=== PATIENT | female | born 1935 | race Caucasian/White ===

== ENCOUNTER → 2017-04-21 | Outpatient (CLI) | payer MEDICARE ==
--- NOTE | 2017-04-21 16:00 | WOMENS IMAGING REPORT ---
EXAM DESCRIPTION: BONE DENSITY HIP/SPINE COMPLETED DATE/TIME: 04/21/2017 1:11 pm REASON FOR STUDY: SCREENING OSTEOPROSIS; Z13.820 Z13.820 ENCOUNTER FOR SCREENING FOR OSTEOPOROSIS COMPARISON: 2002, 2004, 2010 TECHNIQUE: Dual-Energy X-ray Absorptiometry (DEXA) of the AP Spine and Hip. LIMITATIONS: None. FINDINGS: LUMBAR SPINE: The bone mineral density (BMD) measured from L1-L4 in the AP projection correlates with a T-score of -1.9, which is osteopenic as defined by the World Health Organization. This is not statistically sig nificantly different from 2010 HIP: The bone mineral density (BMD) measured in the left femoral neck at the hip correlates with a T-score of -2.2, which is osteopenic as defined by the World Health Organization. This represents a 7% incr ease in bone density compared to 2010 IMPRESSION: 1. LUMBAR SPINE: Osteopenic 2. HIP: Osteopenic COMMENT: The World Health Organization defines low BMD as follows: T-score: Normal: Greater than -1.0 Osteopenia: Between -1.0 and -2.5 Osteoporosis: Less than -2.5 without fractures Established osteoporosis: Less than -2.5 with fractures In general, you may wish to consider: Diagnosis Treatment Follow-up DEXA Normal BMD Prevention 2-3 years Osteopenia Prevention/Therapy 1-2 years Osteoporosis Therapy Yearly TECHNICAL DOCUMENTATION: JOB ID: [id number] [employer]- All Rights Reserved
== END ==
LOC: WI 09:21
PROVIDERS: ATTEND Registered Nurse
DX: M81.0 Age-related osteoporosis without current pathological fracture (principal)
CPT/HCPCS: 77080

== ENCOUNTER → 2018-02-02 | Outpatient (CLI) | payer MEDICARE ==
--- NOTE | 2018-02-03 08:39 | RADIOLOGY REPORT (SQ) ---
EXAM DESCRIPTION: MRIRLJ WO COMPLETED DATE/TIME: 02/02/2018 5:01 pm REASON FOR STUDY: S72.051S UNSPECIFIED FRACTURE OF HEAD OF RIGHT FEMUR, SEQUELA COMPARISON: None. TECHNIQUE: Noncontrast multiplanar MR imaging. Sequences include wide field of view pelvis and focu sed hip of interest. Fat sensitive, water sensitive, and cartilage sensitive sequences. Specific hip of interest: Right LIMITATIONS: None. FINDINGS: MARROW SIGNAL: Normal, no evidence of replacement, occult fracture or suspicious bone lesi on in the visualized lumbar spine, pelvis and proximal femurs. SPECIFIC HIP OF INTEREST: No effusion. Superomedial hip joint space narrowing with chondral thinnin g and subchondral edema. Small femoral osteophytes. No evidence of AVN, fracture or bone lesion. G enerally irregular frayed torn appearance of the labrum. No paralabral cyst formation. No regional significant bursitis. OPPOSITE HIP: No effusion. No AVN or bone lesion. Suspect mild narrowing and small osteophytes, deg enerative change. Not evaluated in a high-resolution fashion. REMAINDER OF THE OSSEOUS PELVIS: SI joints normal. Symphasis pubis intact. No Avulsion injury evide nt. INTRA- AND EXTRAPELVIC SOFT TISSUES: Mild fibroid uterus. Normal bladder. IMPRESSION: 1. Right hip DJD with associated findings as above. No evidence of fracture or worriso me bone lesion. Reading location - IP/workstation name: ANNA MARIE
== END ==
LOC: RAD 15:57
PROVIDERS: ATTEND Family Medicine
DX: S72.051S Unspecified fracture of head of right femur, sequela (principal); X58.XXXS Exposure to other specified factors, sequela

== ENCOUNTER → 2018-07-06 | Day surgery (SDC) | payer MEDICARE ==
[~2018-07-06] MED LIST: BUPIVACAINE HCL 0.5 % INJ/PF 30 ML SDV ONE; METHYLPREDNISOLONE ACETATE INJ 40 MG/1 ML ML ONE
--- NOTE | 2018-07-06 14:57 | RADIOLOGY REPORT (SQ) ---
EXAM DESCRIPTION: FLUORO/NEEDLE PLACEMENT; INJECT/ASPIR HIP/SHLDR/KNEE COMPLETED DATE/TIME: 07/06/2018 1:37 pm REASON FOR STUDY: OA OF HIP (M16.0) M16.0 BILATERAL PRIMARY OSTEOARTHRITIS OF HIP COMPARISON: None. FLUOROSCOPY TIME: 8 seconds 1 digital radiographic image saved to PACS. LIMITATIONS: None. PROCEDURE: SITE OF INJECTION: Left hip LOCALIZING CONTRAST TYPE AND DOSE: 1 mL of Omnipaque 300 MEDICATION TYPE AND DOSE: 80 mg of Depo-Medrol, 3 mL of 0.5% bupivacaine Using local anesthesia and sterile technique with fluoroscopic guidance, the needle was advanced into the joint. Iodinated contrast was injected to verify intraarticular placement. This was followed by therapeutic injection of the indicated medications. The needle was removed. There were no immediat e complications. Preprocedure pain level: 8/10. Postprocedure pain level: 4/10. After written consent and assessment were obtained, the patient was brought into the fluoroscopy room and placed prone on the table. The patient's lower left hip was prepped in a sterile fashion and an entry site was selected under live fluoroscopic guidance. The entry site was anesthetized with 5 mL of 1% lidocaine. A 22 gauge needle was advanced through the skin and into the left hip. Intra-articu lar needle placement was confirmed by injection of 1 mL of Omnipaque 300. At this point, 80 mg of De po-Medrol and 3 mL of 0.5% bupivacaine was injected into the left hip joint space. Needle was remove d. A Band-Aid applied. No immediate complications. IMPRESSION: THERAPEUTIC INJECTION OF THE LEFT HIP JOINT ABOVE. COMMENT: Patient medication list reviewed: Yes- Quality ID# [id number]:Eligible professional attests to doc umenting in the medical record they obtained, updated, or reviewed the patient's current medications. . Quality ID 145: Final reports for procedures using fluoroscopy that document radiation exposure sahra carmen, or exposure time and number of fluorographic images (if radiation exposure indices are not avail able) TECHNICAL DOCUMENTATION: JOB ID: [id number] [employer] All Rights Reserved Reading location - IP/workstation name: [facility]
--- NOTE | 2018-07-06 14:57 | RADIOLOGY REPORT (SQ) ---
EXAM DESCRIPTION: FLUORO/NEEDLE PLACEMENT; INJECT/ASPIR HIP/SHLDR/KNEE COMPLETED DATE/TIME: 07/06/2018 1:37 pm REASON FOR STUDY: OA OF HIP (M16.0) M16.0 BILATERAL PRIMARY OSTEOARTHRITIS OF HIP COMPARISON: None. FLUOROSCOPY TIME: 8 seconds 1 digital radiographic image saved to PACS. LIMITATIONS: None. PROCEDURE: SITE OF INJECTION: Left hip LOCALIZING CONTRAST TYPE AND DOSE: 1 mL of Omnipaque 300 MEDICATION TYPE AND DOSE: 80 mg of Depo-Medrol, 3 mL of 0.5% bupivacaine Using local anesthesia and sterile technique with fluoroscopic guidance, the needle was advanced into the joint. Iodinated contrast was injected to verify intraarticular placement. This was followed by therapeutic injection of the indicated medications. The needle was removed. There were no immediat e complications. Preprocedure pain level: 8/10. Postprocedure pain level: 4/10. After written consent and assessment were obtained, the patient was brought into the fluoroscopy room and placed prone on the table. The patient's lower left hip was prepped in a sterile fashion and an entry site was selected under live fluoroscopic guidance. The entry site was anesthetized with 5 mL of 1% lidocaine. A 22 gauge needle was advanced through the skin and into the left hip. Intra-articu lar needle placement was confirmed by injection of 1 mL of Omnipaque 300. At this point, 80 mg of De po-Medrol and 3 mL of 0.5% bupivacaine was injected into the left hip joint space. Needle was remove d. A Band-Aid applied. No immediate complications. IMPRESSION: THERAPEUTIC INJECTION OF THE LEFT HIP JOINT ABOVE. COMMENT: Patient medication list reviewed: Yes- Quality ID# [id number]:Eligible professional attests to doc umenting in the medical record they obtained, updated, or reviewed the patient's current medications. . Quality ID 145: Final reports for procedures using fluoroscopy that document radiation exposure sahra carmen, or exposure time and number of fluorographic images (if radiation exposure indices are not avail able) TECHNICAL DOCUMENTATION: JOB ID: [id number] [employer]- All Rights Reserved Reading location - IP/workstation name: [facility]
== END ==
LOC: RAD 12:29
PROVIDERS: ATTEND Family Medicine
DX: M16.0 Bilateral primary osteoarthritis of hip (principal)
CPT/HCPCS: 20610; 77002; J3490; J1020

== ENCOUNTER 2018-07-19 04:58 | Emergency (ER) | payer MEDICARE ==
[2018-07-19] MEDS ORDERED: FENTANYL CITRATE INJ/PF 100 MCG/2 ML AMPUL IV ONE (05:25)
--- NOTE | 2018-07-19 06:28 | RADIOLOGY REPORT (SQ) ---
Right forearm two view on 07/19/2018 at 6:12 AM CLINICAL INDICATION: Right forearm pain after fall COMPARISON: None FINDINGS: There is mild diffuse osteopenia. Soft tissue swelling is noted in the forearm. Small olecranon spur is noted. There are no acute fractures. Visualized joints are well aligned. IMPRESSION: No acute abnormality in the forearm.
--- NOTE | 2018-07-19 06:30 | RADIOLOGY REPORT (SQ) ---
EXAM DESCRIPTION: XR HUMERUS COMPLETED DATE/TME: 07/19/2018 05:10 CLINICAL HISTORY: 83 years, Female, pain/fall COMPARISON: None. NUMBER OF VIEWS: Two view LIMITATIONS: None. FINDINGS: Oblique fracture of the mid diaphysis of the right humerus, shafts width medial displacement. Swelling. Metallic anchor fixation of the right humeral head. Widened acromioclavicular joint due to distal clavicular resection and/or ligamentous injury. IMPRESSION: Fracture of the right humeral shaft.
--- NOTE | 2018-07-19 06:31 | RADIOLOGY REPORT (SQ) ---
EXAM DESCRIPTION: XR HAND 3 OR MORE VIEWS COMPLETED DATE/TME: 07/19/2018 05:35 CLINICAL HISTORY: 83 years, Female, fall COMPARISON: None. NUMBER OF VIEWS: Three TECHNIQUE: Three views of the right hand LIMITATIONS: None. FINDINGS: There is a band of sclerosis within the capitate and hamate concerning for a nondisplaced fracture. No displaced fracture is identified. The bones are demineralized. There is marked soft tissue swelling along the dorsum of the hand. IMPRESSION: Band of sclerosis within the capitate and hamate, concerning for a nondisplaced fracture. No displaced fracture is identified. 2011 [employer]- All Rights Reserved
--- NOTE | 2018-07-19 06:42 | ER Document Report ---
ED Fall - General Chief Complaint: Fall Stated Complaint: ARM INJURY Time Seen by Provider: 07/19/18 06:07 Notes: 83-year-old female presents to the emergency department after a fall. The patient was recently vacationing in [place] when she fell down and fractured her midshaft humerus. She has come back to her orthopedist in [place] and they are going to set her up for surgery in the coming week. The patient tripped and fell last night. She stated she just lost her balance there is no loss of consciousness or after the fall. Complains of sharp pain in the right arm patient denies any headache or blurred vision no neck pain no extremity numbness tingling weakness no chest pain or shortness of breath. Patient also complains of a abrasion on the knee. TRAVEL OUTSIDE OF THE [place] IN LAST 30 DAYS: No - Related data Allergies/Adverse Reactions: codeine [Codeine] Allergy (Mild, Verified 12/31/14 11:31) Nausea steroids Allergy (Uncoded 12/31/14 11:31) Past Medical History - Social History Smoking Status: Unknown if Ever Smoked Family History: Reviewed & Not Pertinent Patient has suicidal ideation: No Patient has homicidal ideation: No - Past Medical History Cardiac Medical History: Reports: Hx Atrial Fibrillation - afib, Hx Hypertension - FOR THE LAST FEW MONTHS Denies: Hx Coronary Artery Disease, Hx Heart Attack Pulmonary Medical History: Reports: Hx COPD, Hx Pneumonia - As a child Denies: Hx Asthma, Hx Bronchitis Neurological Medical History: Denies: Hx Cerebrovascular Accident, Hx Seizures Renal/ Medical History: Denies: Hx Peritoneal Dialysis GI Medical History: Reports: Hx Gastroesophageal Reflux Disease Musculoskeletal Medical History: Reports Hx Arthritis - Fingers Past Surgical History: Reports: Hx Appendectomy. Denies: Hx Hysterectomy - Immunizations Hx Diphtheria, Pertussis, Tetanus Vaccination: No Hx Pneumococcal Vaccination: 01/06/14 Review of Systems - Review of Systems Constitutional: denies: Chills, Fever Cardiovascular: denies: Chest pain, Dyspnea Gastrointestinal: denies: Abdominal pain Musculoskeletal: Joint pain Skin: denies: Other -: Yes All other systems reviewed and negative Physical Exam - Notes Notes: GENERAL_APPEARANCE: well_nourished, alert, cooperative, appears uncomfortable VITALS: reviewed, see vital signs table. HEAD: no_swelling\tenderness on the head. EYES: PERRL, EOMI, conjunctiva_clear. NOSE: no_nasal_discharge. MOUTH: (-)decreased moisture. NECK: supple, no_neck_tenderness, (-)thyromegaly. BACK: no_back_tenderness. CHEST_WALL: no_chest_tenderness. EXTREMITIES: Patient has a coaptation splint on her right arm. Her entire right arm is bruised and ecchymotic these bruises are old. There is strong radial and ulnar pulses distal. There is brisk cap refill to nailbeds. There is swelling noted at the midshaft humerus. No open wounds. There is a note her right leg is also swollen there is a small abrasion on the knee again also looks old but may have been re-open due to this fall there is bruising of the leg. SKIN: warm, dry, good_color, no_rash. MENTAL_STATUS: speech_clear, oriented_X_3, normal_affect, responds_ appropriately to questions. NEURO: Neg Motor or Sensory Deficits on exam, CN 2-12 intact, DTR 2+ symmetric x 4, No cerbellar signs Course - Re-evaluation Re-evalutation: 07/19/18 06:41 Elderly female presents after a fall the patient has a history of falls. There is no loss of consciousness. This was a mechanical fall on the way to the bathroom. Patient has a pre-existing midshaft humerus fracture. There is seeing the orthopedist in [place] and is setting up for surgery. Patient is already splinted family wanted to come in and just reevaluate to be sure more no additional damage was done we are x-raying the arm hand and extremities. Patient is neurologically intact there is head and neck CTs are required at this time 07/19/18 06:43 There is some swelling noted to the wrist. There is some mild tenderness there but she has had this. There may be occult fracture noted by the radiologist but no nondisplaced fracture is noted. 07/19/18 07:29 [address] a Velcro wrist splint on that right wrist. Patient has a follow-up this week with orthopedist. Gave her a copy of the wrist report. Family requests some additional pain medicine will prescribe some oxycodone for her. She is a low risk for diversion or abuse. - Diagnostic Test Radiology reviewed: Image reviewed, Reports reviewed Radiology results interpreted by me: 07/19/18 06:42 Humerus X-Ray 07/19/18 05:10 IMPRESSION: Fracture of the right humeral shaft. Forearm X-Ray 07/19/18 05:35 IMPRESSION: No acute abnormality in the forearm. Hand X-Ray 07/19/18 05:35 IMPRESSION: Band of sclerosis within the capitate and hamate, concerning for a nondisplaced fracture. No displaced fracture is identified. 2010 [employer]- All Rights Reserved Discharge - Discharge Clinical Impression: Fracture, humerus closed, shaft Qualifiers: Encounter type: subsequent encounter Fracture morphology: oblique Fracture alignment: displaced Laterality: right Fracture healing: with nonunion Qualified Code(s): S42.331K - Displaced oblique fracture of shaft of humerus, right arm, subsequent encounter for fracture with nonunion Wrist fracture, closed Qualifiers: Encounter type: initial encounter Laterality: right Qualified Code(s): S62.101A - Fracture of unspecified carpal bone, right wrist, initial encounter for closed fracture Condition: Good Disposition: HOME, SELF-CARE Instructions: Fracture Proximal Humerus Additional Instructions: Please follow-up with your orthopedist in [place] as previously scheduled for this week. Prescriptions: Oxycodone HCl 5 mg PO Q6H #20 tablet Referrals: SAMUEL SANTANA MD [Primary Care Provider] - Follow up as needed
[2018-07-19] MEDS ORDERED: OXYCODONE HCL IR 5 MG TABLET PO ONE (07:28)
[2018-07-19 08:50] VITALS: BP 148/91
== END 2018-07-19 08:50 | disposition home or self-care (01) ==
LOC: ER 04:58
DX: S42.331K Displaced oblique fracture of shaft of humerus, right arm, subsequent encounter for fracture with nonunion (principal); S62.101A Fracture of unspecified carpal bone, right wrist, initial encounter for closed fracture; W01.0XXA Fall on same level from slipping, tripping and stumbling without subsequent striking against object, initial encounter; Z91.81 History of falling; Z88.6 Allergy status to analgesic agent; I48.91 Unspecified atrial fibrillation; I10 Essential (primary) hypertension
CPT/HCPCS: 99283; 96374; 73090; 73130; 73060; L3908; J3010; A9270

== ENCOUNTER → 2018-11-17 | Day surgery (SDC) | payer MEDICARE ==
[~2018-11-17] MED LIST changes: +LIDOCAINE 1% INJ-PF (10 MG/ML) 30 ML SDV ONE; -METHYLPREDNISOLONE ACETATE INJ 40 MG/1 ML ML ONE; +METHYLPREDNISOLONE ACETATE INJ 80 MG/1 ML VIAL ONE
--- NOTE | 2018-11-17 15:09 | RADIOLOGY REPORT (SQ) ---
EXAM DESCRIPTION: INJECT/ASPIR HIP/SHLDR/KNEE; FLUORO/NEEDLE PLACEMENT COMPLETED DATE/TIME: 11/17/2018 2:26 pm REASON FOR STUDY: M16.0 BILATERAL PRIMARY OSTEOARTHRITIS OF HIP M16.11 UNILATERAL PRIMARY OSTEOARTH RITIS, RIGHT HIP M16.0 BILATERAL PRIMARY OSTEOARTHRITIS OF HIP COMPARISON: None. FLUOROSCOPY TIME: 12 seconds 1 digital fluoroscopic image Saved to PACS. LIMITATIONS: None. PROCEDURE: SITE OF INJECTION: Right hip LOCALIZING CONTRAST TYPE AND DOSE: 1 mL of Omnipaque 300 MEDICATION TYPE AND DOSE: 80 mg of Depo-Medrol, 4 mL of 0.5% bupivacaine Using local anesthesia and sterile technique with fluoroscopic guidance, the needle was advanced into the joint. Iodinated contrast was injected to verify intraarticular placement. This was followed by therapeutic injection of the indicated medications. The needle was removed. There were no immediat e complications. Preprocedure pain level: 4/5. Postprocedure pain level: 0/5. IMPRESSION: THERAPEUTIC INJECTION OF THE RIGHT HIP JOINT ABOVE. COMMENT: Patient medication list reviewed: Yes- Quality ID# [id number]:Eligible professional attests to doc umenting in the medical record they obtained, updated, or reviewed the patient's current medications. . Quality ID 145: Final reports for procedures using fluoroscopy that document radiation exposure sahra carmen, or exposure time and number of fluorographic images (if radiation exposure indices are not avail able) TECHNICAL DOCUMENTATION: JOB ID: [id number] [employer]- All Rights Reserved Reading location - IP/workstation name: [email or web address]
== END ==
LOC: RAD 13:17
PROVIDERS: ATTEND Family Medicine
DX: M16.0 Bilateral primary osteoarthritis of hip (principal)
CPT/HCPCS: 20610; 77002; J3490 ×2; J1040

== ENCOUNTER → 2019-03-10 | Outpatient (CLI) | payer MEDICARE ==
[2019-03-10 09:35] LABS: ABSOLUTE EOSINOPHILS # (AUTO) 0.2 10^3/uL (0.0-0.6); ABSOLUTE LYMPHOCYTES (AUTO) 1.8 10^3/uL (0.5-4.7); ABSOLUTE MONOCYTES (AUTO) 0.5 10^3/uL (0.1-1.4); ABSOLUTE NEUT (AUTO) 2.3 10^3/uL (1.7-8.2); BASOPHILS % (AUTO) 0.7 % (0-2); EOSINOPHILS % (AUTO) 3.9 % (0-6); HEMATOCRIT 32.8 % (36.0-47.0); HEMOGLOBIN 10.9 g/dL (12.0-15.5); LYMPHOCYTES % (AUTO) 36.9 % (13-45); MEAN CORPUSCULAR HEMOGLOBIN 29.6 pg (27.0-33.4); MEAN CORPUSCULAR HGB CONC 33.3 g/dL (32.0-36.0); MEAN CORPUSCULAR VOLUME 89 fl (80-97); MONOCYTES % (AUTO) 10.2 % (3-13); PLATELET COUNT 284 10^3/uL (150-450); RED CELL DISTRIBUTION WIDTH 13.3 % (11.5-14.0); SEGMENTED NEUTROPHILS % (AUTO) 48.3 % (42-78); TOTAL CELLS COUNTED % (AUTO) 100 %; WHITE BLOOD COUNT 4.8 10^3/uL (4.0-10.5)
[2019-03-10 10:07] LABS: APPEARANCE,URINE CLEAR; BILIRUBIN,URINE NEGATIVE (NEGATIVE); COLOR,URINE YELLOW; GLUCOSE, URINE NEGATIVE (NEGATIVE); KETONES,URINE NEGATIVE (NEGATIVE); LEUKOCYTE ESTERASE,URINE NEGATIVE (NEGATIVE); NITRITE,URINE NEGATIVE (NEGATIVE); PROTEIN,URINE NEGATIVE (NEGATIVE); URINE SPECIFIC GRAVITY 1.012; UROBILINOGEN,URINE NEGATIVE mg/dL (<2.0)
[2019-03-10 10:12] LABS: ALBUMIN 3.8 g/dL (3.5-5.0); ANION GAP 6 (5-19); BLOOD UREA NITROGEN 30 mg/dL (7-20); CALCIUM 9.6 mg/dL (8.4-10.2); CARBON DIOXIDE 30 mmol/L (22-30); CHLORIDE 104 mmol/L (98-107); GLUCOSE 96 mg/dL (75-110); PHOSPHORUS 4.8 mg/dL (2.5-4.5); SODIUM 140.2 mmol/L (137-145)
[2019-03-11 12:38] LABS: CREATININE URINE 57.5 mg/dL (Not Estab.)
== END ==
LOC: OD 08:53
PROVIDERS: ATTEND Internal Medicine Nephrology
DX: I13.0 Hypertensive heart and chronic kidney disease with heart failure and stage 1 through stage 4 chronic kidney disease, or unspecified chronic kidney disease (principal); N18.3 Chronic kidney disease, stage 3 (moderate); I50.9 Heart failure, unspecified; D63.1 Anemia in chronic kidney disease; E78.5 Hyperlipidemia, unspecified
CPT/HCPCS: 36415; 80069; 81001; 82043; 82306; 82570; 83970; 85025

== ENCOUNTER → 2019-03-10 | Day surgery (SDC) | payer MEDICARE ==
[~2019-03-10] MED LIST changes: -LIDOCAINE 1% INJ-PF (10 MG/ML) 30 ML SDV ONE
--- NOTE | 2019-03-10 15:08 | RADIOLOGY REPORT (SQ) ---
EXAM DESCRIPTION: INJECT/ASPIR HIP/SHLDR/KNEE; FLUORO/NEEDLE PLACEMENT COMPLETED DATE/TIME: 03/10/2019 2:10 pm; 03/10/2019 2:41 pm REASON FOR STUDY: M16.12 UNILATERAL PRIMARY OSTEOARTHRITIS, LEFT HIP M16.12 UNILATERAL PRIMARY OSTE OARTHRITIS, LEFT HIP COMPARISON: None. FLUOROSCOPY TIME: 0.3 minutes. 1 images saved to PACS. LIMITATIONS: None. PROCEDURE: SITE OF INJECTION: Left hip. LOCALIZING CONTRAST TYPE AND DOSE: 1 mL Omnipaque. MEDICATION TYPE AND DOSE: 80 mg Depo-Medrol and 5 mL 0.5% bupivacaine. Using local anesthesia and sterile technique with fluoroscopic guidance, the needle was advanced into the joint. Iodinated contrast was injected to verify intraarticular placement. This was followed by therapeutic injection of the indicated medications. The needle was removed. There were no immediat e complications. Preprocedure pain level: 3/5. Postprocedure pain level: 0/5. IMPRESSION: THERAPEUTIC INJECTION OF THE LEFT HIP JOINT ABOVE. COMMENT: Patient medication list reviewed: Yes- Quality ID# [id number]:Eligible professional attests to doc umenting in the medical record they obtained, updated, or reviewed the patient's current medications. . Quality ID 145: Final reports for procedures using fluoroscopy that document radiation exposure sahra carmen, or exposure time and number of fluorographic images (if radiation exposure indices are not avail able) TECHNICAL DOCUMENTATION: JOB ID: [id number] [employer]- All Rights Reserved Reading location - IP/workstation name: [email or web address]
--- NOTE | 2019-03-10 15:08 | RADIOLOGY REPORT (SQ) ---
EXAM DESCRIPTION: INJECT/ASPIR HIP/SHLDR/KNEE; FLUORO/NEEDLE PLACEMENT COMPLETED DATE/TIME: 03/10/2019 2:10 pm; 03/10/2019 2:41 pm REASON FOR STUDY: M16.12 UNILATERAL PRIMARY OSTEOARTHRITIS, LEFT HIP M16.12 UNILATERAL PRIMARY OSTE OARTHRITIS, LEFT HIP COMPARISON: None. FLUOROSCOPY TIME: 0.3 minutes. 1 images saved to PACS. LIMITATIONS: None. PROCEDURE: SITE OF INJECTION: Left hip. LOCALIZING CONTRAST TYPE AND DOSE: 1 mL Omnipaque. MEDICATION TYPE AND DOSE: 80 mg Depo-Medrol and 5 mL 0.5% bupivacaine. Using local anesthesia and sterile technique with fluoroscopic guidance, the needle was advanced into the joint. Iodinated contrast was injected to verify intraarticular placement. This was followed by therapeutic injection of the indicated medications. The needle was removed. There were no immediat e complications. Preprocedure pain level: 3/5. Postprocedure pain level: 0/5. IMPRESSION: THERAPEUTIC INJECTION OF THE LEFT HIP JOINT ABOVE. COMMENT: Patient medication list reviewed: Yes- Quality ID# [id number]:Eligible professional attests to doc umenting in the medical record they obtained, updated, or reviewed the patient's current medications. . Quality ID 145: Final reports for procedures using fluoroscopy that document radiation exposure sahra carmen, or exposure time and number of fluorographic images (if radiation exposure indices are not avail able) TECHNICAL DOCUMENTATION: JOB ID: [id number] [employer]- All Rights Reserved Reading location - IP/workstation name: [email or web address]
== END ==
LOC: RAD 12:46
PROVIDERS: ATTEND Family Medicine
DX: M16.12 Unilateral primary osteoarthritis, left hip (principal)
CPT/HCPCS: 82043; 82570; 80069; 36415; 85025; 81001; 82306; 83970; 20610; 77002; J3490; J1040

== ENCOUNTER → 2019-03-29 | Outpatient (CLI) | payer MEDICARE ==
--- NOTE | 2019-03-29 11:56 | RADIOLOGY REPORT (SQ) ---
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 Selected color Doppler, velocities and spe ctral images recorded. LIMITATIONS: Large patient, limited cooperation, unable hold breath for long periods of time FINDINGS: RIGHT KIDNEY: RENAL ARTERY VELOCITIES: At the hilum, 62 cm/sec. Segmental artery velocity 44 cm/sec. RENAL VEIN: Color doppler flow present, patent. VELOCITY RATIO: 0.9. Normal waveforms. KIDNEY: Normal size. No significant pathology. LEFT KIDNEY: RENAL ARTERY VELOCITIES: At the hilum 73 cm/sec. Segmental artery velocity 39 cm/sec. RENAL VEIN: Color doppler flow present, patent. VELOCITY RATIO: 1.0. Normal waveforms. KIDNEY: Normal size. No significant pathology. BLADDER: No masses or stones. OTHER: No other significant finding. IMPRESSION: NO DOPPLER EVIDENCE OF HEMODYNAMICALLY SIGNIFICANT RENAL ARTERY STENOSIS. COMMENT: NORMAL RENAL ARTERY/AORTA VELOCITY RATIO IS LESS THAN OR EQUAL TO 3.5. TECHNICAL DOCUMENTATION: JOB ID: [id number] [employer]- All Rights Reserved Reading location - IP/workstation name: [email or web address]
== END ==
LOC: RAD 08:31
PROVIDERS: ATTEND Internal Medicine Nephrology
DX: I12.9 Hypertensive chronic kidney disease with stage 1 through stage 4 chronic kidney disease, or unspecified chronic kidney disease (principal); N18.3 Chronic kidney disease, stage 3 (moderate); E83.39 Other disorders of phosphorus metabolism
CPT/HCPCS: 93975

== ENCOUNTER → 2019-06-01 | Outpatient (CLI) | payer MEDICARE ==
[2019-06-01 09:52] LABS: ABSOLUTE EOSINOPHILS # (AUTO) 0.2 10^3/uL (0.0-0.6); ABSOLUTE LYMPHOCYTES (AUTO) 2.1 10^3/uL (0.5-4.7); ABSOLUTE MONOCYTES (AUTO) 0.7 10^3/uL (0.1-1.4); ABSOLUTE NEUT (AUTO) 2.5 10^3/uL (1.7-8.2); BASOPHILS % (AUTO) 0.7 % (0-2); EOSINOPHILS % (AUTO) 4.3 % (0-6); HEMATOCRIT 32.5 % (36.0-47.0); HEMOGLOBIN 10.8 g/dL (12.0-15.5); LYMPHOCYTES % (AUTO) 37.7 % (13-45); MEAN CORPUSCULAR HEMOGLOBIN 29.6 pg (27.0-33.4); MEAN CORPUSCULAR HGB CONC 33.2 g/dL (32.0-36.0); MEAN CORPUSCULAR VOLUME 89 fl (80-97); MONOCYTES % (AUTO) 12.2 % (3-13); PLATELET COUNT 312 10^3/uL (150-450); RED BLOOD COUNT 3.64 10^6/uL (3.72-5.28); RED CELL DISTRIBUTION WIDTH 13.9 % (11.5-14.0); SEGMENTED NEUTROPHILS % (AUTO) 45.1 % (42-78); TOTAL CELLS COUNTED % (AUTO) 100 %; WHITE BLOOD COUNT 5.6 10^3/uL (4.0-10.5)
[2019-06-01 10:20] LABS: ANION GAP 7 (5-19); BLOOD UREA NITROGEN 29 mg/dL (7-20); CALCIUM 9.8 mg/dL (8.4-10.2); CARBON DIOXIDE 30 mmol/L (22-30); CHLORIDE 103 mmol/L (98-107); GLUCOSE 98 mg/dL (75-110); IRON(TIBC) 113.8 ug/dL (37-170); PHOSPHORUS 4.2 mg/dL (2.5-4.5); POTASSIUM 5.4 mmol/L (3.6-5.0)
== END ==
LOC: OD 09:15
PROVIDERS: ATTEND Internal Medicine Nephrology
DX: I12.9 Hypertensive chronic kidney disease with stage 1 through stage 4 chronic kidney disease, or unspecified chronic kidney disease (principal); N18.3 Chronic kidney disease, stage 3 (moderate); D63.1 Anemia in chronic kidney disease
CPT/HCPCS: 36415; 80048; 82728; 83540; 83550; 84100; 85025

== ENCOUNTER → 2019-08-01 | Day surgery (SDC) | payer MEDICARE ==
[~2019-08-01] MED LIST changes: -BUPIVACAINE HCL 0.5 % INJ/PF 30 ML SDV ONE
--- NOTE | 2019-08-01 16:47 | RADIOLOGY REPORT (SQ) ---
EXAM DESCRIPTION: INJECT/ASPIR HIP/SHLDR/KNEE; FLUORO/NEEDLE PLACEMENT COMPLETED DATE/TIME: 08/01/2019 4:05 pm REASON FOR STUDY: M16.9 OSTEOARTHRITIS OF HIP, UNSPECIFIED M16.9 OSTEOARTHRITIS OF HIP, UNSPECIFIED COMPARISON: None. FLUOROSCOPY TIME: 17 seconds 1 image saved to PACS. LIMITATIONS: None. PROCEDURE: SITE OF INJECTION: LEFT FEMOROACETABULAR JOINT. LOCALIZING CONTRAST TYPE AND DOSE: 1 mL of Omnipaque 300. MEDICATION TYPE AND DOSE: 5 mL of bupivacaine and 80 mg of Depo-Medrol. Using local anesthesia and sterile technique with fluoroscopic guidance, the needle was advanced into the joint. Iodinated contrast was injected to verify intraarticular placement. This was followed by therapeutic injection of the indicated medications. The needle was removed. There were no immediat e complications. Preprocedure pain level: 4/5. Postprocedure pain level: 5/5. IMPRESSION: THERAPEUTIC INJECTION OF THE LEFT FEMOROACETABULAR JOINT ABOVE. COMMENT: Patient medication list reviewed: Yes- Quality ID# [id number]:Eligible professional attests to doc umenting in the medical record they obtained, updated, or reviewed the patient's current medications. . Quality ID 145: Final reports for procedures using fluoroscopy that document radiation exposure sahra carmen, or exposure time and number of fluorographic images (if radiation exposure indices are not avail able) TECHNICAL DOCUMENTATION: JOB ID: [id number] [employer]- All Rights Reserved Reading location - IP/workstation name: [email or web address]
== END ==
LOC: RAD 15:13
PROVIDERS: ATTEND Specialist
DX: M16.9 Osteoarthritis of hip, unspecified (principal)
CPT/HCPCS: 20610; 77002; J1040

== ENCOUNTER → 2019-08-08 | Day surgery (SDC) | payer MEDICARE ==
[~2019-08-08] MED LIST changes: +BUPIVACAINE HCL 0.5 % INJ/PF 30 ML SDV ONE
--- NOTE | 2019-08-08 14:35 | RADIOLOGY REPORT (SQ) ---
EXAM DESCRIPTION: INJECT/ASPIR HIP/SHLDR/KNEE; FLUORO/NEEDLE PLACEMENT COMPLETED DATE/TIME: 08/08/2019 1:42 pm REASON FOR STUDY: OA UNSPECIFIED HIP (M16.9) M16.9 OSTEOARTHRITIS OF HIP, UNSPECIFIED COMPARISON: None. FLUOROSCOPY TIME: 17 seconds 1 images saved to PACS. LIMITATIONS: None. PROCEDURE: SITE OF INJECTION: Anterior left hip LOCALIZING CONTRAST TYPE AND DOSE: 1 cc Omnipaque MEDICATION TYPE AND DOSE: 80 mg Depo-Medrol. 5 cc dilute bupivacaine. Using local anesthesia and sterile technique with fluoroscopic guidance, the needle was advanced into the joint. Iodinated contrast was injected to verify intraarticular placement. This was followed by therapeutic injection of the indicated medications. The needle was removed. There were no immediat e complications. IMPRESSION: THERAPEUTIC INJECTION OF THE left hip JOINT ABOVE. COMMENT: Patient medication list reviewed: Yes- Quality ID# [id number]:Eligible professional attests to doc umenting in the medical record they obtained, updated, or reviewed the patient's current medications. . Quality ID 145: Final reports for procedures using fluoroscopy that document radiation exposure sahra carmen, or exposure time and number of fluorographic images (if radiation exposure indices are not avail able) TECHNICAL DOCUMENTATION: JOB ID: [id number] [employer]- All Rights Reserved Reading location - IP/workstation name: [email or web address]
--- NOTE | 2019-08-08 14:35 | RADIOLOGY REPORT (SQ) ---
EXAM DESCRIPTION: INJECT/ASPIR HIP/SHLDR/KNEE; FLUORO/NEEDLE PLACEMENT COMPLETED DATE/TIME: 08/08/2019 1:42 pm REASON FOR STUDY: OA UNSPECIFIED HIP (M16.9) M16.9 OSTEOARTHRITIS OF HIP, UNSPECIFIED COMPARISON: None. FLUOROSCOPY TIME: 17 seconds 1 images saved to PACS. LIMITATIONS: None. PROCEDURE: SITE OF INJECTION: Anterior left hip LOCALIZING CONTRAST TYPE AND DOSE: 1 cc Omnipaque MEDICATION TYPE AND DOSE: 80 mg Depo-Medrol. 5 cc dilute bupivacaine. Using local anesthesia and sterile technique with fluoroscopic guidance, the needle was advanced into the joint. Iodinated contrast was injected to verify intraarticular placement. This was followed by therapeutic injection of the indicated medications. The needle was removed. There were no immediat e complications. IMPRESSION: THERAPEUTIC INJECTION OF THE left hip JOINT ABOVE. COMMENT: Patient medication list reviewed: Yes- Quality ID# [id number]:Eligible professional attests to doc umenting in the medical record they obtained, updated, or reviewed the patient's current medications. . Quality ID 145: Final reports for procedures using fluoroscopy that document radiation exposure sahra carmen, or exposure time and number of fluorographic images (if radiation exposure indices are not avail able) TECHNICAL DOCUMENTATION: JOB ID: [id number] [employer]- All Rights Reserved Reading location - IP/workstation name: [email or web address]
== END ==
LOC: RAD 12:45
PROVIDERS: ATTEND Specialist
DX: M16.9 Osteoarthritis of hip, unspecified (principal)
CPT/HCPCS: 20610; 77002; J3490; J1040

== ENCOUNTER 2019-12-13 10:10 | Emergency (ER) | payer MEDICARE ==
--- NOTE | 2019-12-13 10:47 | ER Document Report ---
ED Medical Screen (RME) - General Chief Complaint: Shortness Of Breath Stated Complaint: SHORTNESS OF BREATH Time Seen by Provider: 12/13/19 10:34 Primary Care Provider: SAMUEL MANCERA MD [Primary Care Provider] - Follow up as needed Mode of Arrival: Ambulatory Information source: Patient Notes: This 84-year-old female with history of A. fib congestive heart failure presents emergency department with complaints of shortness of breath feeling flushed for the past couple days. She reports she sometimes feels winded just sitting there but will become short of breath with exertion. Denies chest pain denies fever vomiting diarrhea. Her outdoor adventure instructor is Dr. Rainey. She was instructed to come the emergency department and have us contact him before 1100 so he can see her in the emergency department. I attempted to contact Dr. Rainey via the hospital casting machine service operator but she reports his voicemail is not set up. I also contacted the office, I spoke with Dr Whitman, he reports he has a meeting and is not available at this time. He agrees with the work-up for cardiac and contact him at [phone]. Patient was instructed on plan of care. I have greeted and performed a rapid initial assessment of this patient. A comprehensive ED assessment and evaluation of the patient, analysis of test results and completion of the medical decision making process will be conducted by additional ED providers. TRAVEL OUTSIDE OF THE [place] IN LAST 30 DAYS: No - Related Data Allergies/Adverse Reactions: codeine [Codeine] Allergy (Mild, Verified 12/31/14 11:31) Nausea steroids Allergy (Uncoded 12/31/14 11:31) Past Medical History - Past Medical History Cardiac Medical History: Reports: Hx Atrial Fibrillation - afib, Hx Hypertension - FOR THE LAST FEW MONTHS Denies: Hx Coronary Artery Disease, Hx Heart Attack Pulmonary Medical History: Reports: Hx COPD, Hx Pneumonia - As a child Denies: Hx Asthma, Hx Bronchitis Neurological Medical History: Denies: Hx Cerebrovascular Accident, Hx Seizures Renal/ Medical History: Denies: Hx Peritoneal Dialysis GI Medical History: Reports: Hx Gastroesophageal Reflux Disease Musculoskeltal Medical History: Reports Hx Arthritis - Fingers Past Surgical History: Reports: Hx Appendectomy. Denies: Hx Hysterectomy - Immunizations Hx Diphtheria, Pertussis, Tetanus Vaccination: No Doctor's Discharge - Discharge Referrals: SAMUEL MANCERA MD [Primary Care Provider] - Follow up as needed
[2019-12-13 11:28] LABS: ABSOLUTE EOSINOPHILS # (AUTO) 0.1 10^3/uL (0.0-0.6); ABSOLUTE LYMPHOCYTES (AUTO) 2.5 10^3/uL (0.5-4.7); ABSOLUTE MONOCYTES (AUTO) 1.4 10^3/uL (0.1-1.4); ABSOLUTE NEUT (AUTO) 4.7 10^3/uL (1.7-8.2); BASOPHILS % (AUTO) 0.3 % (0-2); EOSINOPHILS % (AUTO) 1.2 % (0-6); HEMOGLOBIN 11.8 g/dL (12.0-15.5); LYMPHOCYTES % (AUTO) 28.8 % (13-45); MEAN CORPUSCULAR HEMOGLOBIN 31.9 pg (27.0-33.4); MEAN CORPUSCULAR HGB CONC 34.6 g/dL (32.0-36.0); MEAN CORPUSCULAR VOLUME 92 fl (80-97); MONOCYTES % (AUTO) 15.5 % (3-13); PLATELET COUNT 304 10^3/uL (150-450); SEGMENTED NEUTROPHILS % (AUTO) 54.2 % (42-78); TOTAL CELLS COUNTED % (AUTO) 100 %; WHITE BLOOD COUNT 8.8 10^3/uL (4.0-10.5)
--- NOTE | 2019-12-13 11:30 | ER Document Report ---
ED General - General Chief Complaint: Shortness Of Breath Stated Complaint: SHORTNESS OF BREATH Time Seen by Provider: 12/13/19 10:34 Primary Care Provider: SAMUEL MANCERA MD [Primary Care Provider] - Follow up as needed Mode of Arrival: Ambulatory TRAVEL OUTSIDE OF THE [place] IN LAST 30 DAYS: No - HPI Patient complains to provider of: SOB Notes: 84-year-old female history of atrial fibrillation and congestive heart failure presents with concerns of mild shortness of breath and intermittent decreased exercise tolerance. It has been going on for 2 or 3 days. Denies any chest pain. Patient is on daily blood thinners and antihypertensives and rate control agents. Contacted her broadcast transmitter operator this morning recommended evaluation emergency department for possible paroxysmal atrial fibrillation. Patient she states at rest she is feeling fine right now denies all symptoms. - Related Data Allergies/Adverse Reactions: codeine [Codeine] Allergy (Mild, Verified 12/31/14 11:31) Nausea steroids Allergy (Uncoded 12/31/14 11:31) Past Medical History - General Information source: Patient - Social History Smoking Status: Unknown if Ever Smoked Family History: Reviewed & Not Pertinent - Past Medical History Cardiac Medical History: Reports: Hx Atrial Fibrillation - afib, Hx Hypertension - FOR THE LAST FEW MONTHS Denies: Hx Coronary Artery Disease, Hx Heart Attack Pulmonary Medical History: Reports: Hx COPD, Hx Pneumonia - As a child Denies: Hx Asthma, Hx Bronchitis Neurological Medical History: Denies: Hx Cerebrovascular Accident, Hx Seizures Renal/ Medical History: Denies: Hx Peritoneal Dialysis GI Medical History: Reports: Hx Gastroesophageal Reflux Disease Musculoskeletal Medical History: Reports Hx Arthritis - Fingers Past Surgical History: Reports: Hx Appendectomy. Denies: Hx Hysterectomy - Immunizations Hx Diphtheria, Pertussis, Tetanus Vaccination: No Hx Pneumococcal Vaccination: 01/06/14 Review of Systems - Review of Systems Notes: REVIEW OF SYSTEMS: CONSTITUTIONAL: -fevers, -chills EENT: -eye pain, -difficulty swallowing, -nasal congestion CARDIOVASCULAR: -chest pain, -syncope. RESPIRATORY: -cough, -SOB GASTROINTESTINAL: -abdominal pain, -nausea, -vomiting, -diarrhea GENITOURINARY: -dysuria, -hematuria MUSCULOSKELETAL: -back pain, -neck pain SKIN: -rash or skin lesions. HEMATOLOGIC: -easy bruising or bleeding. LYMPHATIC: -swollen, enlarged glands. NEUROLOGICAL: -altered mental status or loss of consciousness, -headache, - neurologic symptoms PSYCHIATRIC: -anxiety, -depression. ALL OTHER SYSTEMS REVIEWED AND NEGATIVE. Physical Exam - Vital signs Vitals: Temp Pulse Resp BP Pulse Ox 98.8 F 63 18 186/62 H 97 12/13/19 10:29 12/13/19 10:12/13/19 10:12/13/19 10:12/13/19 10:29 - Notes Notes: PHYSICAL EXAMINATION: GENERAL: Well-appearing, well-nourished and in no acute distress. HEAD: Atraumatic, normocephalic. EYES: Pupils equal round and reactive to light, extraocular movements intact, sclera anicteric, conjunctiva are normal. ENT: nares patent, oropharynx clear without exudates. Moist mucous membranes. NECK: Normal range of motion, supple without lymphadenopathy LUNGS: Breath sounds clear to auscultation bilaterally and equal. No wheezes rales or rhonchi. HEART: Regular rate and rhythm without murmurs ABDOMEN: Soft, nontender, normoactive bowel sounds. No guarding, no rebound. No masses appreciated. EXTREMITIES: Normal range of motion, no pitting or edema. No cyanosis. NEUROLOGICAL: Cranial nerves grossly intact. Normal speech, normal gait. Normal sensory and motor exams. PSYCH: Normal mood, normal affect. SKIN: Warm, Dry, normal turgor, no rashes or lesions noted. Course - Re-evaluation Re-evalutation: 12/13/19 11:29 Well-appearing female no acute distress presents with intermittent shortness of breath. KG is no ischemic changes 12/13/19 12:40 Patient's extensive lab work-up unremarkable outside of mild elevation in proBNP. Chest x-ray is no pulmonary edema. No cefmenoxime required. Patient will be given dose of IV Lasix in the emergency department. Will write prescription for 7 days of additional oral Lasix. Follow-up PCP return if anything worsens or changes. - Vital Signs Vital signs: Temp Pulse Resp BP Pulse Ox 98.8 F 63 17 169/69 H 96 12/13/19 10:29 12/13/19 10:29 12/13/19 12:00 12/13/19 11:25 12/13/19 12:00 - Laboratory Result Diagrams: 12/13/19 11:10 12/13/19 11:10 Laboratory results interpreted by me: 12/13/19 12/13/19 12/13/19 11:10 11:10 11:10 RBC 3.70 L Hgb 11.8 L Hct 34.0 L [place] % (Auto) 15.5 H BUN 40 H Creatinine 1.33 H Est GFR ( Amer) 46 L Est GFR (MDRD) Non-Af 38 L Glucose 73 L NT-Pro-B Natriuret Pep 1170 H - EKG Interpretation by Me Additional EKG results interpreted by me: 12/13/19 11:29 Normal sinus rhythm, no ST elevations, no ST depressions, no pathologic T wave inversions normal QRS Discharge - Discharge Clinical Impression: CHF (congestive heart failure) Qualifiers: Heart failure type: unspecified Heart failure chronicity: acute on chronic Qualified Code(s): I50.9 - Heart failure, unspecified Condition: Stable Disposition: HOME, SELF-CARE Instructions: Congestive Heart Failure ([facility]) Prescriptions: Furosemide [Lasix 20 mg Tablet] 20 mg PO QAM #5 tablet Referrals: SAMUEL MANCERA MD [Primary Care Provider] - Follow up as needed
--- NOTE | 2019-12-13 11:30 | RADIOLOGY REPORT (SQ) ---
EXAM DESCRIPTION: CHEST 2 VIEWS COMPLETED DATE/TIME: 12/13/2019 11:17 am REASON FOR STUDY: SOB COMPARISON: 01/03/2014. EXAM PARAMETERS: NUMBER OF VIEWS: two views TECHNIQUE: Digital Frontal and Lateral radiographic views of the chest acquired. RADIATION DOSE: NA LIMITATIONS: none FINDINGS: LUNGS AND PLEURA: Chronic interstitial changes. No focal infiltrates, masses or pneumotho rax. No pleural effusion. MEDIASTINUM AND HILAR STRUCTURES: No masses or contour abnormalities. HEART AND VASCULAR STRUCTURES: Heart normal size. No evidence for failure. BONES: No acute findings. Stable sclerotic lesion in the left humerus. HARDWARE: Hardware in the right humerus. OTHER: No other significant finding. IMPRESSION: NO ACUTE RADIOGRAPHIC FINDING IN THE CHEST. TECHNICAL DOCUMENTATION: JOB ID: [id number] 2010 [employer]- All Rights Reserved Reading location - IP/workstation name: [email or web address]
[2019-12-13 11:48] LABS: ALBUMIN 4.2 g/dL (3.5-5.0); ALKALINE PHOSPHATASE 64 U/L (38-126); ANION GAP 9 (5-19); ASPARTATE AMINO TRANSFERASE 16 U/L (14-36); BILIRUBIN,DIRECT 0.1 mg/dL (0.0-0.4); BILIRUBIN,TOTAL 0.4 mg/dL (0.2-1.3); BLOOD UREA NITROGEN 40 mg/dL (7-20); CALCIUM 9.3 mg/dL (8.4-10.2); CARBON DIOXIDE 26 mmol/L (22-30); CHLORIDE 104 mmol/L (98-107); GLUCOSE 73 mg/dL (75-110); POTASSIUM 4.9 mmol/L (3.6-5.0); TOTAL PROTEIN 7.1 g/dL (6.3-8.2)
[2019-12-13 11:58] LABS: TROPONIN I 0.012 ng/mL
[2019-12-13] MEDS ORDERED: FUROSEMIDE INJ/PF 100 MG/10 ML SDV IV ONE (12:40)
[2019-12-13 14:16] VITALS: BP 189/77
--- NOTE | 2019-12-14 17:24 | EKG REPORT ---
SEVERITY:- ABNORMAL ECG - SINUS RHYTHM MULTIPLE ATRIAL PREMATURE COMPLEXES LEFT VENTRICULAR HYPERTROPHY : Confirmed by: Jesse Noel 14-Dec-2019 17:23:13
== END 2019-12-13 14:16 | disposition home or self-care (01) ==
LOC: ER 10:10
DX: I11.0 Hypertensive heart disease with heart failure (principal); I50.9 Heart failure, unspecified; I48.91 Unspecified atrial fibrillation; J44.9 Chronic obstructive pulmonary disease, unspecified; R06.02 Shortness of breath; Z79.899 Other long term (current) drug therapy
CPT/HCPCS: 93005; 99285; 96374; 36415; 85025; 80053; 84484; 83880; 71046; 93010; J1940

== ENCOUNTER → 2020-09-03 | Outpatient (CLI) | payer MEDICARE ==
[2020-09-03 15:09] LABS: HEMATOCRIT 33.9 % (36.0-47.0); HEMOGLOBIN 11.3 g/dL (12.0-15.5); MEAN CORPUSCULAR HEMOGLOBIN 30.2 pg (27.0-33.4); MEAN CORPUSCULAR HGB CONC 33.2 g/dL (32.0-36.0); MEAN CORPUSCULAR VOLUME 91 fl (80-97); PLATELET COUNT 242 10^3/uL (150-450); RED BLOOD COUNT 3.73 10^6/uL (3.72-5.28); RED CELL DISTRIBUTION WIDTH 13.4 % (11.5-14.0); WHITE BLOOD COUNT 6.4 10^3/uL (4.0-10.5)
[2020-09-03 15:49] LABS: ALBUMIN 4.3 g/dL (3.5-5.0); ANION GAP 7 (5-19); BLOOD UREA NITROGEN 36 mg/dL (7-20); CALCIUM 9.6 mg/dL (8.4-10.2); CARBON DIOXIDE 28 mmol/L (22-30); CHLORIDE 104 mmol/L (98-107); GLUCOSE 109 mg/dL (75-110); PHOSPHORUS 3.9 mg/dL (2.5-4.5); POTASSIUM 5.5 mmol/L (3.6-5.0)
[2020-09-03 16:16] LABS: APPEARANCE,URINE CLEAR; BILIRUBIN,URINE NEGATIVE (NEGATIVE); COLOR,URINE STRAW; GLUCOSE, URINE NEGATIVE (NEGATIVE); KETONES,URINE NEGATIVE (NEGATIVE); LEUKOCYTE ESTERASE,URINE LARGE (NEGATIVE); NITRITE,URINE NEGATIVE (NEGATIVE); PROTEIN,URINE NEGATIVE (NEGATIVE); URINE SPECIFIC GRAVITY 1.004; UROBILINOGEN,URINE NEGATIVE mg/dL (<2.0)
== END ==
LOC: OD 14:18
PROVIDERS: ATTEND Physician Assistant Medical
DX: N18.30 Chronic kidney disease, stage 3 unspecified (principal); D63.1 Anemia in chronic kidney disease; E83.39 Other disorders of phosphorus metabolism
CPT/HCPCS: 36415; 80069; 81001; 83970; 85027

== ENCOUNTER → 2020-10-17 | Outpatient (CLI) | payer MEDICARE ==
--- NOTE | 2020-10-17 12:53 | RADIOLOGY REPORT (SQ) ---
EXAM DESCRIPTION: CERV SP 4 OR 5 VIEWS IMAGES COMPLETED DATE/TIME: 10/17/2020 9:22 am REASON FOR STUDY: NECK PAIN M54.2 CERVICALGIA COMPARISON: None. NUMBER OF VIEWS: Five views. TECHNIQUE: AP, lateral, obliques and odontoid radiographic images acquired of the cervical spine. LIMITATIONS: None. FINDINGS: MINERALIZATION: Normal. ALIGNMENT: Anatomic. VERTEBRAE: Vertebral bodies of normal height. DISCS: Disc narrowing at C4-5 with marginal osteophytes. FORAMINA: Bilateral foraminal stenoses at C4-5, left more than right. LATERAL AND POSTERIOR ELEMENTS: Facets, lateral masses and spinous processes without significant find ings. HARDWARE: None in the spine. SOFT TISSUES: No masses or calcifications. Lung apices clear. OTHER: No other significant finding. IMPRESSION: Degenerative disc disease and spondylosis. TECHNICAL DOCUMENTATION: JOB ID: [id number] 2010 [employer]- All Rights Reserved Reading location - IP/workstation name: [email or web address]
== END ==
LOC: RAD 08:56
PROVIDERS: ATTEND Physician Assistant
DX: M50.321 Other cervical disc degeneration at C4-C5 level (principal); M47.812 Spondylosis without myelopathy or radiculopathy, cervical region
CPT/HCPCS: 72050